=== PATIENT | female | born 1995 | race American Indian/Alaskan Native ===

== ENCOUNTER 2016-11-21 16:38 | Emergency (ER) | payer SELFPAY ==
--- NOTE | 2016-11-22 01:49 | Emergency Department Report ---
HPI - General Chief Complaint: Dizziness Time Seen by Provider: 11/22/16 01:36 - HPI HPI: Room 19 The patient is a 21-year-old female presenting with a chief complaint of dizziness. The patient states for the past 3 days she is lightheaded she stands. Patient states she feels weak constantly. Patient admits to substernal chest pain or shortness of breath the past 3 days. The patient states yesterday she developed one episode of nausea and vomiting. Patient denies diarrhea, bright red blood per rectum or melena. The patient is admitted to an intermittent left sided headache for the past 3 days. Patient states she has had normal po intake Location: [see above] Duration: 3 days Quality: Dizziness Severity: Moderate Modifying factors: [see above] Context: [see above] Mode of transportation: [not driving] ED Past Medical Hx - Past Medical History Previous Medical History?: No - Surgical History Past Surgical History?: No - Family History Family history: no significant - Social History Smoking Status: Never Smoker Substance Use Type: None (denies illicit drug use), Alcohol - Medications Home Medications: Home Medications Medication Instructions Recorded Confirmed Last Taken Type Pnv95/Ferrous Fumarate/FA 1 each PO QDAY #90 tablet 11/22/16 Unknown Rx [Prenavite Tablet] ED Review of Systems ROS: Stated complaint: LIGHT HEADED Other details as noted in HPI Comment: All other systems reviewed and negative Constitutional: denies: chills, fever Eyes: denies: eye pain, eye discharge, vision change ENT: denies: ear pain, throat pain Respiratory: shortness of breath Cardiovascular: chest pain Endocrine: no symptoms reported Gastrointestinal: nausea, vomiting. denies: abdominal pain, diarrhea, melena, hematochezia Genitourinary: denies: urgency, dysuria, discharge Musculoskeletal: denies: back pain, joint swelling, arthralgia Skin: denies: rash, lesions Neurological: headache, other (dizziness) Psychiatric: denies: anxiety, depression Hematological/Lymphatic: denies: easy bleeding, easy bruising Physical Exam - Physical Exam Vital Signs: Vital Signs 11/21/16 11/22/16 11/22/16 16:47 01:01 01:10 Temperature 98.4 F Pulse Rate 91 H 73 64 Respiratory 18 11 L 18 Rate Blood Pressure 140/63 O2 Sat by Pulse 100 100 100 Oximetry 11/22/16 01:32 Temperature Pulse Rate Respiratory Rate Blood Pressure O2 Sat by Pulse 99 Oximetry Physical Exam: GENERAL: The patient is well-developed well-nourished female sitting on stretcher not appearing to be in acute distress. [] HEENT: Normocephalic. Atraumatic. Extraocular motions are intact. Patient has moist mucous membranes. NECK: Supple. Trachea midline. There are no signs of meningitis CHEST/LUNGS: Clear to auscultation. There is no respiratory distress noted. HEART/CARDIOVASCULAR: Regular. There is no tachycardia. There is no gallop rub or murmur. ABDOMEN: Abdomen is soft, nontender. Patient has normal bowel sounds. There is no abdominal distention. SKIN: There is no rash. There is no edema. There is no diaphoresis. NEURO: The patient is awake, alert, and oriented. The patient is cooperative. The patient has no focal neurologic deficits. The patient has normal speech. Cranial nerves II through XII grossly intact, no drift MUSCULOSKELETAL: There is no evidence of acute injury. ED Course Vital Signs 11/21/16 11/22/16 11/22/16 16:47 01:01 01:10 Temperature 98.4 F Pulse Rate 91 H 73 64 Respiratory 18 11 L 18 Rate Blood Pressure 140/63 O2 Sat by Pulse 100 100 100 Oximetry 11/22/16 01:32 Temperature Pulse Rate Respiratory Rate Blood Pressure O2 Sat by Pulse 99 Oximetry ED Medical Decision Making - Lab Data Result diagrams: 11/22/16 01:37 11/22/16 01:37 Laboratory Tests 11/22/16 11/22/16 11/22/16 01:37 01:37 01:50 WBC 5.5 RBC 3.94 Hgb 8.2 L Hct 26.7 L MCV 68 L MCH 21 L MCHC 31 RDW 22.3 H Plt Count 322 [place] % (Auto) Not Reportable Eos % (Auto) Not Reportable [place] # Not Reportable Eos # Not Reportable Baso # Not Reportable Add Manual Diff Complete Total Counted 100 Seg Neutrophils % Manager Balance Seg Neuts % (Manual) 66.0 Band Neutrophils % 2.0 Lymphocytes % (Manual) 27.0 Reactive Lymphs % (Man) 0 Monocytes % (Manual) 4.0 Eosinophils % (Manual) 0 Basophils % (Manual) 0 Metamyelocytes % 1.0 Myelocytes % 0 Promyelocytes % 0 Blast Cells % 0 Nucleated RBC % Not Reportable Seg Neutrophils # Not Reportable Seg Neutrophils # Man 3.6 Band Neutrophils # 0.1 Lymphocytes # (Manual) 1.5 Abs React Lymphs (Man) 0.0 Monocytes # (Manual) 0.2 Eosinophils # (Manual) 0.0 Basophils # (Manual) 0.0 Metamyelocytes # 0.1 Myelocytes # 0.0 Promyelocytes # 0.0 Blast Cells # 0.0 WBC Morphology Not Reportable Hypersegmented Neuts Not Reportable Hyposegmented Neuts Not Reportable Hypogranular Neuts Not Reportable Smudge Cells Not Reportable Toxic Granulation Not Reportable Toxic Vacuolation Not Reportable Dohle Bodies Not Reportable Pelger-Huet Anomaly Not Reportable Erma Rods Not Reportable Platelet Estimate Appears normal Clumped Platelets Not Reportable Plt Clumps, EDTA Not Reportable Large Platelets Not Reportable Giant Platelets Not Reportable Platelet Satelliting Not Reportable Plt Morphology Comment Not Reportable RBC Morphology Not Reportable Dimorphic RBCs Not Reportable Polychromasia Not Reportable Hypochromasia 2+ Poikilocytosis Not Reportable Anisocytosis 1+ Microcytosis 1+ Macrocytosis Not Reportable Spherocytes Not Reportable Pappenheimer Bodies Not Reportable Sickle Cells Not Reportable Target Cells Not Reportable Tear Drop Cells Not Reportable Ovalocytes Few Helmet Cells Not Reportable Hollins-Counce Bodies Not Reportable [place] Rings Not Reportable Trell Cells Not Reportable Bite Cells Not Reportable Crenated Cell Not Reportable Elliptocytes Not Reportable Acanthocytes (Spur) Not Reportable Rouleaux Not Reportable Hemoglobin C Crystals Not Reportable Schistocytes Not Reportable Malaria parasites Not Reportable Sergio Bodies Not Reportable Hem Pathologist Commnt No D-Dimer 319.31 H Sodium 136 L Potassium 3.6 Chloride 100.7 Carbon Dioxide 20 L Anion Gap 19 BUN 9 Creatinine 0.5 L Estimated GFR > 60 BUN/Creatinine Ratio 18.00 Glucose 84 Calcium 9.7 Troponin T < 0.010 TSH Free T4 HCG, Qual HCG, Quant 11/22/16 11/22/16 11/22/16 01:50 01:50 04:35 WBC RBC Hgb Hct MCV MCH MCHC RDW Plt Count [place] % (Auto) Eos % (Auto) [place] # Eos # Baso # Add Manual Diff Total Counted Seg Neutrophils % Seg Neuts % (Manual) Band Neutrophils % Lymphocytes % (Manual) Reactive Lymphs % (Man) Monocytes % (Manual) Eosinophils % (Manual) Basophils % (Manual) Metamyelocytes % Myelocytes % Promyelocytes % Blast Cells % Nucleated RBC % Seg Neutrophils # Seg Neutrophils # Man Band Neutrophils # Lymphocytes # (Manual) Abs React Lymphs (Man) Monocytes # (Manual) Eosinophils # (Manual) Basophils # (Manual) Metamyelocytes # Myelocytes # Promyelocytes # Blast Cells # WBC Morphology Hypersegmented Neuts Hyposegmented Neuts Hypogranular Neuts Smudge Cells Toxic Granulation Toxic Vacuolation Dohle Bodies Pelger-Huet Anomaly Erma Rods Platelet Estimate Clumped Platelets Plt Clumps, EDTA Large Platelets Giant Platelets Platelet Satelliting Plt Morphology Comment RBC Morphology Dimorphic RBCs Polychromasia Hypochromasia Poikilocytosis Anisocytosis Microcytosis Macrocytosis Spherocytes Pappenheimer Bodies Sickle Cells Target Cells Tear Drop Cells Ovalocytes Helmet Cells Hollins-Counce Bodies [place] Rings Trell Cells Bite Cells Crenated Cell Elliptocytes Acanthocytes (Spur) Rouleaux Hemoglobin C Crystals Schistocytes Malaria parasites Sergio Bodies Hem Pathologist Commnt D-Dimer Sodium Potassium Chloride Carbon Dioxide Anion Gap BUN Creatinine Estimated GFR BUN/Creatinine Ratio Glucose Calcium Troponin T < 0.010 TSH 0.317 Free T4 1.26 HCG, Qual Positive HCG, Quant 11/22/16 Unknown WBC RBC Hgb Hct MCV MCH MCHC RDW Plt Count [place] % (Auto) Eos % (Auto) [place] # Eos # Baso # Add Manual Diff Total Counted Seg Neutrophils % Seg Neuts % (Manual) Band Neutrophils % Lymphocytes % (Manual) Reactive Lymphs % (Man) Monocytes % (Manual) Eosinophils % (Manual) Basophils % (Manual) Metamyelocytes % Myelocytes % Promyelocytes % Blast Cells % Nucleated RBC % Seg Neutrophils # Seg Neutrophils # Man Band Neutrophils # Lymphocytes # (Manual) Abs React Lymphs (Man) Monocytes # (Manual) Eosinophils # (Manual) Basophils # (Manual) Metamyelocytes # Myelocytes # Promyelocytes # Blast Cells # WBC Morphology Hypersegmented Neuts Hyposegmented Neuts Hypogranular Neuts Smudge Cells Toxic Granulation Toxic Vacuolation Dohle Bodies Pelger-Huet Anomaly Erma Rods Platelet Estimate Clumped Platelets Plt Clumps, EDTA Large Platelets Giant Platelets Platelet Satelliting Plt Morphology Comment RBC Morphology Dimorphic RBCs Polychromasia Hypochromasia Poikilocytosis Anisocytosis Microcytosis Macrocytosis Spherocytes Pappenheimer Bodies Sickle Cells Target Cells Tear Drop Cells Ovalocytes Helmet Cells Hollins-Counce Bodies [place] Rings [place] Cells Bite Cells Crenated Cell Elliptocytes Acanthocytes (Spur) Rouleaux Hemoglobin C Crystals Schistocytes Malaria parasites Sergio Bodies Hem Pathologist Commnt D-Dimer Sodium Potassium Chloride Carbon Dioxide Anion Gap BUN Creatinine Estimated GFR BUN/Creatinine Ratio Glucose Calcium Troponin T TSH Free T4 HCG, Qual HCG, Quant 04776 H - EKG Data -: EKG Interpreted by Me EKG shows normal: sinus rhythm Rate: normal - EKG Data When compared to previous EKG there are: previous EKG unavailable Interpretation: nonspecific ST-T wave brayan (T-wave inversion in lead V2) - Radiology Data Radiology results: report reviewed (pelvic ultrasound, VQ scan), image reviewed (chest x-ray, VQ scan, pelvic ultrasound) interpreted by me: Chest x-ray-no focal infiltrates, no pneumothorax Pelvic ultrasound (read by radiologist)- twin gestations intrauterine VQ scan (read by radiologist)- very low probability - Differential Diagnosis dehydration, orthostasis, PE, pneumonia, UTI, symptomatic anemia Critical care attestation.: If time is entered above; I have spent that time in minutes in the direct care of this critically ill patient, excluding procedure time. ED Disposition Clinical Impression: , Atypical chest pain Disposition: [id number] TO HOME OR SELFCARE Is pt being admited?: No Does the pt Need Aspirin: No Condition: Stable Instructions: Chest Pain (ED), (ED) Additional Instructions: Return to the emergency department immediately should you develop worsening symptoms, fever, inability to tolerate food or liquid or any other concerns. Prescriptions: Pnv95/Ferrous Fumarate/FA [Prenavite Tablet] 1 each PO QDAY #90 tablet Referrals: DEACON RIOS MD [Staff Physician] - [place] (Dr. Rios is an [employer]. Please follow up with her for further evaluation and to be established as a patient)
[2016-11-22 02:13] LABS: Hematocrit 26.7 % (30.3-42.9); Hemoglobin 8.2 gm/dl (10.1-14.3); Mean Corpuscular HGB Conc 31 % (30-34); Platelet Count 322 K/mm3 (140-440); Red Blood Count 3.94 M/mm3 (3.65-5.03); White Blood Count 5.5 K/mm3 (4.5-11.0)
[2016-11-22 02:22] LABS: Anion Gap 19 mmol/L; Blood Urea Nitrogen 9 mg/dL (7-17); Calcium 9.7 mg/dL (8.4-10.2); Carbon Dioxide 20 mmol/L (22-30); Chloride 100.7 mmol/L (98-107); Glucose 84 mg/dL (65-100); Potassium 3.6 mmol/L (3.6-5.0); Sodium 136 mmol/L (137-145)
[2016-11-22 02:36] LABS: Mean Corpuscular Hemoglobin 21 pg (28-32); Mean Corpuscular Volume 68 fl (79-97); Red Cell Distribution Width 22.3 % (13.2-15.2)
[2016-11-22 03:22] VITALS: BP 117/61
[2016-11-22 05:14] LABS: Basophils % (Manual) 0 % (0.0-1.8); Blastocytes % (Manual) 0 %; Eosinophils % (Manual) 0 % (0.0-4.3)
[2016-11-22 05:15] LABS: Anisocytosis 1+; Diff Status Complete; Hypochromasia 2+; Microcytosis 1+; Ovalocytes Few
--- NOTE | 2016-11-22 06:05 | Ultrasound Report ---
FINAL REPORT EXAM: US OB \T\lt; = 14 WEEKS FETUS, US OB \T\lt; = 14 WK FETUS ADD GEST HISTORY: , anemia, dizziness. TECHNIQUE: Directed transabdominal and transvaginal ultrasound examination of the pelvis was performed. No prior studies are available for comparison. FINDINGS: The patient reports her last menstrual period 10/09/2016, corresponding to gestational age of 6 weeks, 2 days. The uterus is anteverted, and measures 8.5 x 5.7 x 8.9 cm. There are twin intrauterine gestations, with visualization of two distinct gestational sacs, each containing a single yolk sac and pole. For the purposes of this exam, twin A is located on the right side of the uterus, and twin B is located on the left. Twin A: The crown-rump length measures 7.5 mm, corresponding to gestational age of 6 weeks, 5 days. There is cardiac activity with a heart rate of 112 beats per minute. Twin B: The crown-rump length measures 8.5 mm, corresponding to gestational age of 6 weeks, 6 days. There is cardiac activity with a heart rate of 115 beats per minute. The right ovary measures 2.7 x 2.1 x 3.5 cm, and the left ovary measures 2.1 x 1.4 x 3.1 cm. Both ovaries demonstrate normal appearing subcentimeter follicles. There is appropriate color doppler flow within both ovaries. No other adnexal mass is seen. There is no significant pelvic free fluid. IMPRESSION: Twin live intrauterine gestations, with gestational ages of 6 weeks, 5-6 days, as estimated by crown-rump length.
--- NOTE | 2016-11-22 06:51 | Nuclear Medicine Report ---
FINAL REPORT EXAM: NM PERFUSION ONLY LUNG SCAN HISTORY: chest pain, shortness of breath TECHNIQUE: Nuclear medicine perfusion lung scan performed. 5.0 mCi technetium 99 M MAA IV was administered. Static images were obtained. PRIORS: None. FINDINGS: Pulmonary perfusion appears minimally heterogeneous. No segmental or subsegmental perfusion defects are seen. No ventilation imaging performed. Assuming normal ventilation, findings are compatible with very low probability of pulmonary embolus. IMPRESSION: Very low probability of pulmonary embolus.
--- NOTE | 2016-11-23 16:10 | XRay Report ---
CHEST ONE VIEW INDICATION: Shield abdomen. COMPARISON: None similar at this institution. FINDINGS: Portable, single, frontal chest radiograph suggests top normal heart size. Normal mediastinal and hilar contours. Clear lungs. Unremarkable bones. Extrinsic EKG leads. CONCLUSION: No acute disease in the chest. Please note that this exam is now submitted to me for interpretation. Thank you for the opportunity to participate in this patient's care.
== END 2016-11-22 08:15 | disposition home or self-care (01) ==
LOC: ED 16:38
DX: O26.891 Other specified pregnancy related conditions, first trimester (principal); R07.89 Other chest pain; Z3A.01 Less than 8 weeks gestation of pregnancy
CPT/HCPCS: 36415; 71010; 76801; 76802; 78580; 80048; 84439; 84443; 84484; 84702; 84703; 85007; 85025; 85379; 93005; 93010; 99285; A9540

== ENCOUNTER → 2016-11-21 | Emergency (ER) | payer SELFPAY | LOC: MERGE 16:40 → ED 16:40 | DX: R42 Dizziness and giddiness (principal); Z53.21 Procedure and treatment not carried out due to patient leaving prior to being seen by health care provider ==

== ENCOUNTER 2017-06-11 18:48 | Emergency (ER) | payer OTHER ==
--- NOTE | 2017-06-11 19:53 | Emergency Department Report ---
Blank Doc - Documentation Documentation: Patient is a 21-year-old asthmatic female who is presenting with vaginal bleeding. Patient is 12 weeks states she had some clots this morning but is slowed slightly now. Patient has some crampy lower abdominal pain mostly in the right lower quadrant. Patient denies any fever nausea vomiting at this time. Patient will undergo ultrasound beta Quant and ABO Rh
[2017-06-11] MEDS ORDERED: NACL 0.9% 1000 ML 1,000 ML IV ONE (19:54)
[2017-06-11 20:19] LABS: Hemoglobin 9.4 gm/dl (10.1-14.3); Red Blood Count 3.87 M/mm3 (3.65-5.03)
[2017-06-11 20:20] LABS: Hematocrit 28.9 % (30.3-42.9); Mean Corpuscular HGB Conc 33 % (30-34); Mean Corpuscular Hemoglobin 24 pg (28-32); Mean Corpuscular Volume 75 fl (79-97); Red Cell Distribution Width 21.2 % (13.2-15.2)
[2017-06-11 20:21] LABS: Basophils % (Auto) 0.4 % (0.0-1.8); Eosinophils # (Auto) 0.1 K/mm3 (0.0-0.4); Eosinophils % (Auto) 1.5 % (0.0-4.3); Lymphocytes # (Auto) 0.9 K/mm3 (1.2-5.4); Lymphocytes % (Auto) 14.9 % (13.4-35.0); Monocytes # (Auto) 0.6 K/mm3 (0.0-0.8); Monocytes % (Auto) 10.6 % (0.0-7.3); Platelet Count 321 K/mm3 (140-440)
[2017-06-11] MEDS ORDERED: TYLENOL ONE (21:08)
[2017-06-11 21:27] LABS: HCG Qualitative,Urine Positive (Negative)
[2017-06-11 21:33] LABS: Bacteria,Urine 1+ /HPF (Negative); Bilirubin,Urine NEG (Negative); Blood,Urine MOD (Negative); Color,Urine Yellow (Yellow); Mucus,Urine 2+ /HPF; Nitrite,Urine NEG (Negative)
--- NOTE | 2017-06-12 00:21 | Ultrasound Report ---
FINAL REPORT PROCEDURE: US OB < = 14 WK FETUS ADD GEST TECHNIQUE: Real-time limited sonographic examination was performed for evaluation of size, position, heartbeat, fluid volume for each fetus with image documentation (1 or more fetuses). CPT 61705 HISTORY: vag bleed 12 weeks preg COMPARISON: No prior studies are available for comparison. FINDINGS: There is a diamniotic dichorionic twin identified within the uterus. The cervical length is 3.3 centimeters. The placenta is identified along the anterior aspect of the uterus. There is a small subchorionic bleed identified adjacent to the twin a gestational sac. This area measures approximately 16 millimeters. Twin a is in a transverse position. heart rate 143 beats per minute. Average uterine age 13 weeks 1 day with the following measurements: BPD 2 centimeters, HC 7.6 centimeters, AC 2.3 centimeters, FL 1.1 centimeters. There is a normal amount of amniotic fluid present. Twin B is in a transverse position. heart rate 156 beats per minute. The average uterine age is 13 weeks 1 day based on the following measurements: BPD 2 centimeters, HC 7.8 centimeters, AC 6.3 centimeter, FL 0.9 centimeters. There is a normal amount of amniotic fluid present. Estimated date confinement is 12/16/2017. Both ovaries are identified on this study. There are follicular cysts on each ovary. No fluid in the lower pelvis. IMPRESSION: Twin gestation with average uterine age twin A 13 weeks 1 day, average uterine age twin B 13 weeks 1 day. Estimated date confinement is 12/16/2017.
--- NOTE | 2017-06-12 01:22 | Emergency Department Report ---
ED Female HPI - General Chief complaint: Vaginal Bleeding Stated complaint: VAGINAL BLEEDING Time Seen by Provider: 06/11/17 19:27 Source: patient Mode of arrival: Ambulatory Limitations: No Limitations - History of Present Illness Initial comments: This is a 21 y.o. female presents with vaginal bleeding and abdominal pain for 1 day. She is 12 weeks . LMP 02/2017. She was passing heavy clots yesterday morning. Bleeding has slowed down. She used 3 pads yesterday. She is wondering if the medication prescribed for the flu had something to do with bleeding. She was diagnosed with the flu 2-3 weeks ago, prescribed tamiflu, promethatizine, and something else she doesn't remember the name of. Denies back pain, nausea/vomiting, and fever. She is not followed by [facility] because she was waiting on medicaid approval. She was approved yesterday and plan on scheduling an appointment Tuesday. Complaint: vaginal bleeding -: days(s) (1) Location: RLQ Radiation: non-radiating Severity: mild Severity scale (0 -10): 3 Quality: cramping Consistency: intermittent Improves with: none Worsens with: none Are you Now?: Yes Last Menstrual Period: 03/14/17 EDC: 12/19/17 Associated Symptoms: vaginal bleeding, abdominal pain. denies: nausea/vomiting , fever/chills, headaches, loss of appetite, dysuria, hematuria, rash, seizure, shortness of breath, syncope, weakness - Related Data Sexually active: Yes : 1 Para: 0 A: 0 Previous Rx's Medication Instructions Recorded Last Taken Type Pnv No.95/Ferrous Fum/Folic AC 1 each PO QDAY #90 tablet 11/22/16 Unknown Rx [Prenavite Tablet] Allergies Allergy/AdvReac Type Severity Reaction Status Date / Time banana Allergy Angioedema Verified 11/21/16 16:49 kiwi Allergy Angioedema Verified 11/21/16 16:49 strawberry Allergy Angioedema Verified 11/21/16 16:48 ED Review of Systems ROS: Stated complaint: VAGINAL BLEEDING Other details as noted in HPI Constitutional: denies: chills, fever Respiratory: denies: cough, shortness of breath, wheezing Cardiovascular: denies: chest pain, palpitations Gastrointestinal: abdominal pain (RLQ). denies: nausea, vomiting, diarrhea, constipation, hematemesis Musculoskeletal: denies: back pain, joint swelling, arthralgia Neurological: denies: headache, weakness, paresthesias ED Past Medical Hx - Past Medical History Previous Medical History?: No - Surgical History Past Surgical History?: No - Social History Smoking Status: Never Smoker Substance Use Type: None - Medications Home Medications: Home Medications Medication Instructions Recorded Confirmed Last Taken Type Pnv No.95/Ferrous Fum/Folic AC 1 each PO QDAY #90 tablet 11/22/16 Unknown Rx [Prenavite Tablet] ED Physical Exam - General Limitations: No Limitations - Respiratory Respiratory exam: Present: normal lung sounds bilaterally. Absent: respiratory distress - Cardiovascular Cardiovascular Exam: Present: regular rate, normal rhythm. Absent: systolic murmur, diastolic murmur, rubs, gallop - GI/Abdominal GI/Abdominal exam: Present: soft, normal bowel sounds - Back Exam Back exam: Present: normal inspection - Neurological Exam Neurological exam: Present: alert, oriented X3 - Skin Skin exam: Present: warm, dry, intact, normal color. Absent: rash ED Course Vital Signs 06/11/17 06/11/17 18:56 19:25 Temperature 98.8 F Pulse Rate 120 H Respiratory 16 18 Rate Blood Pressure 122/69 O2 Sat by Pulse 99 99 Oximetry ED Medical Decision Making - Lab Data Result diagrams: 06/11/17 20:13 - Radiology Data Radiology results: report reviewed US OB IMPRESSION: Twin gestation with average uterine age twin A 13 weeks 1 day, average uterine age twin B 13 weeks 1 day. Estimated date confinement is 12/16/2017. - Medical Decision Making This is a 21 y.o. female presents with vaginal bleeding and abdominal pain for 1 day. She is 12 weeks gestation. Bleeding has slowed. She was passing clots yesterday morning. Patient was examined by me. CBC and HCG qual obtained. OB US obtained and read by radiologist. Twin gestation with average uterine age twin A 13 weeks 1 day, average uterine age twin B 13 weeks 1 day. Estimated date confinement is 12/16/2017. Discussed results with patient. F/U with [facility]OSPAT[facility]AGERY INTELLIGENCE ANALYST. Critical care attestation.: If time is entered above; I have spent that time in minutes in the direct care of this critically ill patient, excluding procedure time. ED Disposition Clinical Impression: Vaginal bleeding in Subchorionic hemorrhage in first trimester Qualifiers: Fetus number: fetus 1 of multiple gestation Qualified Code(s): O41.8X11 - Other specified disorders of amniotic fluid and membranes, first trimester, fetus 1; O46.8X1 - Other antepartum hemorrhage, first trimester; O46.8X1 - Other antepartum hemorrhage, first trimester Disposition: TO HOME OR SELFCARE Is pt being admited?: No Does the pt Need Aspirin: No Condition: Stable Instructions: Abdominal Pain in (ED) Additional Instructions: Avoid standing for long periods of time. Avoid intercourse. Avoid exercise. Follow up with GEOSPATIAL IMAGERY INTELLIGENCE ANALYST in 24-48 hours. Referrals: DWIGHT ELIAS MD [Staff Physician] - 3-5 Days Time of Disposition: 01:42 Print Language: ITALIAN
[2017-06-12 01:58] VITALS: BP 126/73
--- NOTE | 2017-06-12 07:31 | Ultrasound Report ---
FINAL REPORT EXAM: US OB < = 14 WEEKS FETUS HISTORY: VAG BLEED 12 WEEKS PREG TECHNIQUE: Transabdominal imaging was obtained of the pelvis for evaluation of the . FINDINGS: There is a diamniotic dichorionic twin within the uterus. The cervix is closed and measures 3.3 centimeters in length. The placenta is anterior in position and is homogeneous in echotexture. There is a very small subchorionic hemorrhage adjacent to the twin a gestational sac. Twin a is in transverse position with heart rate of 143 BPM. There is a normal amount of amniotic fluid. A complete survey of organs was not obtained. The estimated sonographic age is 13 weeks 1 day based on criteria. Twin B is also in transverse position with an estimated sonographic age of 13 weeks 1 day. A complete survey of organs was not obtained. The abdomen fluid volume is normal. The heart rate for twin B is 156 BPM. Both maternal ovaries are enlarged revealing benign-appearing follicles bilaterally. The right ovary measures 5.3 cm x 3.2 cm x 5.6 cm. The left ovary measures 5.2 cm x 3.1 cm x 5.6 cm. Free fluid is not seen. IMPRESSION: Diamniotic dichorionic twin , with an estimated gestational age of 13 weeks 1 day for both fetuses.
== END 2017-06-12 02:05 | disposition home or self-care (01) ==
LOC: ED 18:48
DX: O46.8X1 Other antepartum hemorrhage, first trimester (principal); O41.8X11 Other specified disorders of amniotic fluid and membranes, first trimester, fetus 1; Z3A.12 12 weeks gestation of pregnancy; Z91.018 Allergy to other foods
CPT/HCPCS: 36415; 76801; 76802; 81001; 81025; 85025; 96360; 96361; 99284; J7030

== ENCOUNTER 2017-09-03 18:44 | Observation (INO) | payer MEDICAID ==
[2017-09-03] MEDS ORDERED: LACTATED RINGERS 500 ML IV ONE (20:00)
[2017-09-03 20:36] LABS: Bacteria,Urine 2+ /HPF (Negative); Bilirubin,Urine NEG (Negative); Blood,Urine NEG (Negative); Calcium Oxalate Crystals,Urine FEW; Color,Urine Yellow (Yellow); Mucus,Urine 2+ /HPF; Urobilinogen,Urine < 2.0 mg/dL (<2.0)
[2017-09-03] MEDS ORDERED: MACROBID PO ONE (21:21)
[2017-09-03] MEDS ORDERED: TYLENOL PO ONE (21:22)
--- NOTE | 2017-09-03 23:58 | Ultrasound Report ---
FINAL REPORT PROCEDURE: US OB LIMITED TECHNIQUE: Real-time limited sonographic examination was performed for evaluation of cervical length, presentation, presentation for each fetus with image documentation (1 or more fetuses). CPT 86450 HISTORY: Twinges station, contractions, COMPARISON: No prior studies are available for comparison. FINDINGS: This is a twin gestation. Both twins are in vertex presentations. Average uterine age by prior studies is approximately 24 weeks. heart rate twin a 153 beats per minute. heart rate Cespedes be 143 beats per minute. No other measurements on the fetus are attained. There is opening of the internal os with funneling of the cervix. The cervical length on this study is 6 millimeters. IMPRESSION: Twinges station with both twins in vertex presentations. Incompetent cervix with opening of the internal oz and funneling in the cervix. The cervical length on this study measures 6 millimeters.
--- NOTE | 2017-09-04 00:01 | Ultrasound Report ---
FINAL REPORT PROCEDURE: US OB LIMITED, transvaginal imaging TECHNIQUE: Real-time limited sonographic examination was performed for evaluation of cervical length, presentation, presentation for each fetus with image documentation (1 or more fetuses). CPT 00991 HISTORY: Twinges station, contractions, COMPARISON: No prior studies are available for comparison. FINDINGS: This is a twin gestation. Both twins are in vertex presentations. Average uterine age by prior studies is approximately 24 weeks. heart rate twin a 153 beats per minute. heart rate twin B 143 beats per minute. No other measurements on the fetus are attained. There is opening of the internal os with funneling of the cervix. The cervical length on this study is 6 millimeters. IMPRESSION: Twinges station with both twins in vertex presentations. Incompetent cervix with opening of the internal oz and funneling in the cervix. The cervical length on this study measures 6 millimeters.
[2017-09-04] MEDS ORDERED: MAGNESIUM SULFATE 4GM/100ML 4 GM/100 ML BAG IV ONE (00:11)
[2017-09-04 00:49] LABS: Hematocrit 28.5 % (30.3-42.9); Hemoglobin 8.9 gm/dl (10.1-14.3); Mean Corpuscular HGB Conc 31 % (30-34); Mean Corpuscular Hemoglobin 26 pg (28-32); Mean Corpuscular Volume 83 fl (79-97); Platelet Count 239 K/mm3 (140-440); Red Blood Count 3.44 M/mm3 (3.65-5.03)
[2017-09-04] MEDS ORDERED: MAGNESIUM SULFATE 40GM/1000ML 40 GM/1,000 ML BAG IV SCH (01:00)
[2017-09-04] MEDS ORDERED: CELESTONE SOLUSPAN IM SCH (01:00)
[2017-09-04] MEDS ORDERED: LACTATED RINGERS 1,000 ML IV SCH (01:00)
[2017-09-04] MEDS ORDERED: STADOL IV PRN (02:05)
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
[2017-09-04 03:18] LABS: Amphetamine Screen,Urine PRESUMPTIVE NEGATIVE; Benzodiazepines Screen,Urine PRESUMPTIVE NEGATIVE; Cannabinoid Screen,Urine PRESUMPTIVE NEGATIVE; Cocaine Screen,Urine PRESUMPTIVE NEGATIVE; Methadone Screen,Urine PRESUMPTIVE NEGATIVE; Opiate Screen,Urine PRESUMPTIVE NEGATIVE
[2017-09-04 03:21] VITALS: BP 129/65
== END 2017-09-04 03:40 | disposition other institution (70) ==
LOC: TRG 18:44 → LD 09-04 00:24
PROVIDERS: ADMIT Obstetrics & Gynecology; ATTEND Obstetrics & Gynecology
DX: O26.872 Cervical shortening, second trimester (principal); O30.092 Twin pregnancy, unable to determine number of placenta and number of amniotic sacs, second trimester; Z3A.25 25 weeks gestation of pregnancy
CPT/HCPCS: 36415; 76815; 76817; 80307; 81001; 82731; 85027; 86592; 86850; 86900; 86901; 96361; 96365; 96366; 96367; 96372; G0378; J0702; J3475; J7120

== ENCOUNTER 2017-09-10 01:34 | Inpatient (IN) | payer MEDICAID ==
[~2017-09-10 01:34] MED LIST: MAGNESIUM SULFATE 4GM/100ML 4 GM/100 ML BAG IV ONE
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
[2017-09-10] MEDS ORDERED: EMLA TP PRN (02:39)
[2017-09-10] MEDS ORDERED: PEPCID IV ONE (02:39)
[2017-09-10] MEDS ORDERED: BICITRA PO ONE (02:39)
[2017-09-10] MEDS ORDERED: REGLAN IV ONE (02:39)
[2017-09-10] MEDS ORDERED: ASTRAMORPH PF 10MG/10ML ONE (02:51)
[2017-09-10 02:54] LABS: Hematocrit 28.7 % (30.3-42.9); Hemoglobin 9.3 gm/dl (10.1-14.3); Mean Corpuscular HGB Conc 32 % (30-34); Mean Corpuscular Hemoglobin 27 pg (28-32); Mean Corpuscular Volume 83 fl (79-97); Platelet Count 217 K/mm3 (140-440); Red Blood Count 3.46 M/mm3 (3.65-5.03)
[2017-09-10 02:58] LABS: Red Cell Distribution Width 27.5 % (13.2-15.2)
[2017-09-10] MEDS ORDERED: PITOCin/NS 20 UNIT/1000ML DRIP 20 UNITS/1,000 ML BAG IV SCH ×2 (03:00→05:00)
[2017-09-10] MEDS ORDERED: LACTATED RINGERS 1,000 ML IV SCH (03:00)
[2017-09-10] MEDS ORDERED: MAGNESIUM SULFATE 40GM/1000ML 40 GM/1,000 ML BAG IV SCH (03:00)
[2017-09-10] MEDS ORDERED: ANCEF/STERILE WATER 2 GM/20 ML 2 GM/20 ML SYRINGE IV NR (03:00)
[2017-09-10] MEDS ORDERED: WATER FOR IRRIG STERILE IR ONE (03:10)
[2017-09-10] MEDS ORDERED: NACL 0.9% IR ONE (03:10)
[2017-09-10] MEDS ORDERED: CUROSURF ONE ×2 (03:13→04:29)
[2017-09-10] MEDS ORDERED: DIPRIVAN 10 MG/ML IV ONE (03:26)
[2017-09-10] MEDS ORDERED: NEO SYNEPHRINE/NS Syringe(OR USE) IV ONE (03:51)
[2017-09-10] MEDS ORDERED: QUELICIN ONE (03:51)
[2017-09-10] MEDS ORDERED: SUBLIMAZE ONE (03:53)
[2017-09-10 03:58] LABS: Basophils % (Manual) 0 % (0.0-1.8); Myelocytes # (Manual) 0.1 K/mm3; Total Cells Counted 100
[2017-09-10 03:59] LABS: Large Platelets Few; Tear Drop Cells Few
[2017-09-10 04:00] LABS: Platelet Estimate Consistent w Auto
--- NOTE | 2017-09-10 04:21 | Operative Report ---
Operative Report Operative Report: DATE: 09/10/2017 PREOPERATIVE DIAGNOSIS: 22-year-old at 26+1 wks, Di Di twin gestation, active labor, malpresentation POSTOP DIAGNOSIS: As above NAME OF PROCEDURE: Primary low transverse section SURGEON: SANDRA VAZQUEZ MD FILLETER: Lakeshia ANESTHESIA: Gen. EBL: 1000 mL PATHOLOGY SPECIMEN: None URINE OUTPUT: 300 mL FINDINGS: Baby A is a female infant in cephalic presentation, time of 3: 30 AM, infant weighed 1 lb. 10 oz. or 745 grams, unknown at this time intubated; baby B in breech presentation time of 3:31 AM, weight 810 g or 1 lb. 13 oz., unknown at this time baby intubated; normal uterus tubes and ovaries bilaterally DESCRIPTION OF PROCEDURE: After informed consent, patient was taken to the operating room where she was prepped and draped in a sterile fashion. Pfannestial incision was performed 2 cm above the pubic symphysis. This was then carried down to the underlying rectus fascia which was scored in the midline. The fascial incision was extended laterally with the use of Schilling scissors, anterior leaf was then grasped with Adriana's elevated dissected sharply and bluntly off the underlying rectus. In a similar fashion the inferior leaf was grasped elevated dissected sharply and bluntly off the underlying rectus. The rectus was in the midline and the peritoneal cavity was entered without difficulty. After good visualization of the bladder the peritoneal layer was extended up and down; bladder blade was placed in the patient's pelvic cavity, bladder flap was created without difficulty. A hysterotomy incision was then performed with clear amniotic fluid noted. Infant A in cephalic presentation was delivered without difficulty in the usual manner ; cord was clamped cut and was handed over to waiting NICU staff. Baby B in breech presentation was verted and delivered in usual manner. Cord was clamped, cut and was handed over to waiting NICU staff. The placenta was then delivered intact, the uterus was then exteriorized cleared of all clots and debris. Her hysterotomy incision was then closed in a running locked fashion with 0 Vicryl on a CTX; using the same suture were able to imbricate the initial layer. The uterus was then returned to the patient's pelvic cavity ; the peritoneal edges were grasped with hemostats and Kalie's; irrigation was used to clear the gutters of all clots and debris. Tisseel hemostatic agent was applied copiously over the hysterotomy incision. The peritoneal layer was closed in a running fashion with 3-0 Vicryl; the rectus was reapproximated with a single [id number] stitch. The fascia was then closed in a running fashion with 0 Vicryl; the subcutaneous layer was reapproximated with a single [id number] stitch. The skin was then closed in a subcuticular manner with 4-0 Monocryl. She tolerated the procedure well lap and instrument counts were correct 2, she did receive 2 grams of Ancef prior to the procedure. She is transferred to PACU in stable condition.
[2017-09-10] MEDS ORDERED: TUCKS PAD TP PRN (04:22)
[2017-09-10] MEDS ORDERED: MILK OF MAGNESIA PO PRN (04:22)
[2017-09-10] MEDS ORDERED: NARCAN 0.4 MG/1 ML IV PRN ×2 (04:22→04:51)
[2017-09-10] MEDS ORDERED: PHENERGAN PR PRN ×2 (04:22→04:51)
[2017-09-10] MEDS ORDERED: SENOKOT PO PRN (04:22)
[2017-09-10] MEDS ORDERED: TYLENOL PO PRN (04:22)
[2017-09-10] MEDS ORDERED: LANSINOH TP PRN (04:22)
[2017-09-10] MEDS ORDERED: ZOFRAN IV PRN ×2 (04:22→04:51)
[2017-09-10] MEDS ORDERED: TORADOL IV PRN (04:22)
[2017-09-10] MEDS ORDERED: MYLICON PO PRN (04:22)
[2017-09-10] MEDS ORDERED: WATER FOR INJ ONE (04:29)
[2017-09-10] MEDS ORDERED: [UNRECOGNIZED DRUG - OTHER] ONE (04:29)
[2017-09-10] MEDS ORDERED: TORADOL ONE (04:47)
[2017-09-10] MEDS ORDERED: PHENERGAN PO PRN (04:51)
[2017-09-10] MEDS ORDERED: DILAUDID IV PRN ×2 (04:51)
[2017-09-10] MEDS: TORADOL IV SCH ×3 (04:55→20:40)
--- NOTE | 2017-09-10 04:55 | Anesthesia Consultation ---
Anesthesia Consult and Med Hx Date of service: 09/10/17 - Airway Anesthetic Teeth Evaluation: Good ROM Head & Neck: Adequate Mental/Hyoid Distance: Adequate Mallampati Class: Class II Intubation Access Assessment: Possibly Difficult - Pulmonary Exam CTA: Yes - Cardiac Exam Cardiac Exam: RRR - Pre-Operative Health Status ASA Pre-Surgery Classification: ASA2, Emergency Proposed Anesthetic Plan: Epidural, Spinal - Pulmonary Hx Smoking: No Hx Asthma: No COPD: No Hx Pneumonia: No - Cardiovascular System Hx Hypertension: No - Central Nervous System Hx Seizures: No Hx Psychiatric Problems: No - Endocrine Hx Renal Disease: No Hx End Stage Renal Disease: No Hx Hypothyroidism: No Hx Hyperthyroidism: No - Hematic Hx Anemia: No Hx Sickle Cell Disease: No - Other Systems Hx Alcohol Use: No
--- NOTE | 2017-09-10 04:55 | Anesthesia Day of Surgery ---
Anesthesia Day of Surgery - Day of Surgery Patient Examined: Yes Patient H&P Reviewed: Yes Patient is NPO: No (OB declared emergency Csection)
--- NOTE | 2017-09-10 04:56 | Post Anesthesia Evaluation ---
- Post Anesthesia Evaluation Patient Participated: Yes Airway Patent: Yes Stable Respiratory Function: Yes Nausea/Vomiting: No Temp > 96.8F: Yes Pain Manageable: Yes Adequeate Hydration: Yes Anesthesia Complications: No Block Receding Appropriately: Yes Patient on Ventilator: No
[2017-09-10] MEDS ORDERED: SODIUM CHLORIDE FLUSH SYRINGE 10 ML IV NR ×2 (05:00)
[2017-09-10] MEDS ORDERED: D5LR 1,000 ML IV SCH (05:00)
[2017-09-10] MEDS ORDERED: LACTATED RINGERS 1,000 ML ONE (05:38)
[2017-09-10] MEDS ORDERED: MAGNESIUM SULFATE 4GM/100ML 4 GM/100 ML BAG IV ONE (06:05)
[2017-09-10] MEDS ORDERED: BENADRYL ONE (08:32)
[2017-09-10] MEDS ORDERED: D5LR 1,000 ML IV ONE (08:32)
[2017-09-10] MEDS ORDERED: BENADRYL IV PRN (08:45)
[2017-09-10] MEDS ORDERED: PRENATAL VITAMIN PO SCH (10:00)
[2017-09-10 15:09] LABS: Bilirubin,Urine NEG (Negative); Blood,Urine SM (Negative); Color,Urine Yellow (Yellow); Mucus,Urine FEW /HPF; Protein,Urine <15 mg/dL mg/dL (Negative); Urobilinogen,Urine < 2.0 mg/dL (<2.0)
[2017-09-10 15:10] LABS: Amphetamine Screen,Urine PRESUMPTIVE NEGATIVE; Benzodiazepines Screen,Urine PRESUMPTIVE NEGATIVE; Cannabinoid Screen,Urine PRESUMPTIVE NEGATIVE; Cocaine Screen,Urine PRESUMPTIVE NEGATIVE; Methadone Screen,Urine PRESUMPTIVE NEGATIVE
[2017-09-10 15:26] LABS: Opiate Screen,Urine PRESUMPTIVE POSITIVE
[2017-09-10] MEDS: PERCOCET 5/325 PO PRN ×2 (16:12→23:38)
[2017-09-10 22:19] LABS: Hematocrit 23.5 % (30.3-42.9); Hemoglobin 7.3 gm/dl (10.1-14.3)
[2017-09-11] MEDS: TORADOL IV SCH (04:34)
[2017-09-11] MEDS: PERCOCET 5/325 PO PRN ×3 (06:48→18:30)
--- NOTE | 2017-09-11 09:41 | Progress Note ---
Assessment and Plan A: POD #1 - stable P; Babies at [facility] and stable per mom's report Discharge home in am. Subjective - Subjective Date of service: 09/11/17 Principal diagnosis: Twin operative delivery at 26wks gestation Patient reports: appetite normal : in NICU (At [facility]) Objective - Vital Signs Latest vital signs: Vital Signs Temp Pulse Resp BP 09/11/17 09:00 98.2 F 87 18 119/52 09/11/17 00:43 98.0 F 89 18 109/47 09/10/17 16:40 98 F 100 H 18 123/73 09/10/17 12:52 99.4 F 106 H 16 120/76 Intake and Output 09/10/17 09/11/17 09/11/17 22:59 06:59 14:59 Intake Total 600 240 Output Total 3300 800 Balance -2700 -800 240 Intake: Oral 600 240 Output: Urine 3300 800 Indwelling Catheter 3000 Void 300 800 Other: Total, Intake Amount 240 240 Total, Output Amount 300 800 # Voids Void 0 1 1 - Exam Breasts: Present: deferred Cardiovascular: Present: Regular rate Lungs: Present: Clear to auscultation Abdomen: Present: soft Vulva: both: normal Uterus: Present: fundal height below umbilicus Extremities: Present: normal Deep Tendon Reflex Grade: Normal +2 Incision: Present: dressed - Labs Labs: Abnormal lab results 09/10/17 09/10/17 Range/Units 14:25 22:07 Hgb 7.3 L (10.1-14.3) gm/dl Hct 23.5 L (30.3-42.9) % Urine WBC (Auto) 9.0 H (0.0-6.0) /HPF
[2017-09-11] MEDS: FEOSOL PO SCH (11:06)
[2017-09-11] MEDS: MOTRIN PO PRN ×2 (11:07→18:31)
[2017-09-12] MEDS: PERCOCET 5/325 PO PRN ×2 (00:02→10:03)
[2017-09-12] MEDS: MOTRIN PO PRN (05:22)
--- NOTE | 2017-09-12 09:27 | Progress Note ---
Assessment and Plan - Patient Problems (1) S/P primary low transverse Current Visit: Yes Status: Acute Plan to address problem: POD 2 - stable Discharge to home today Follow up at [facility] in 2 weeks for incision check (2) Anemia of the puerperium Current Visit: Yes Status: Acute Plan to address problem: Asymptomatic Known history prior to and during Continue iron therapy Subjective - Subjective Date of service: 09/12/17 Principal diagnosis: S/P twin operative delivery at 26wks gestation Patient reports: appetite normal, voiding normally, pain well controlled, flatus , bowel movement, ambulating normally [place]: in NICU (at [facility]) Objective - Vital Signs Latest vital signs: Vital Signs Temp Pulse Resp BP Pulse Ox 09/11/17 23:17 98.6 F 87 20 119/67 09/11/17 15:39 97.6 F 79 18 126/57 97 Intake and Output 09/11/17 09/12/17 09/12/17 23:59 07:59 15:59 Intake Total 360 600 Balance 360 600 Intake: Oral 240 Intake, Free Water 120 600 Other: Total, Intake Amount 240 # Voids Void 1 1 - Exam Cardiovascular: Present: Regular rate, Normal S1, Normal S2, No murmurs Lungs: Present: Clear to auscultation, Normal air movement Abdomen: Present: normal appearance, soft, normal bowel sounds Vulva: both: normal Uterus: Present: normal, firm, fundal height below umbilicus Extremities: Present: normal Deep Tendon Reflex Grade: Normal +2 Incision: Present: normal, dry, intact
--- NOTE | 2017-09-12 09:31 | Discharge Summary ---
Providers - Providers Date of Admission: 09/10/17 02:29 Date of discharge: 09/12/17 Attending physician: DWIGHT ELIAS MD Primary care physician: DWIGHT ELIAS MD Hospitalization Reason for admission: IUP - , labor Delivery: Procedure: primary low transverse Episiotomy: none Laceration: none Incision: normal, dry, intact Other procedures: none complications: none Discharge diagnosis: IUP at term delivered baby: twins Hospital course: Complicated by anemia but patient is asymptomtic and on iron therapy Condition at discharge: Stable Disposition: DC-01 TO HOME OR SELFCARE - Discharge Diagnoses (1) S/P primary low transverse Status: Acute (2) Anemia of the puerperium Status: Acute Comment: Asymptomatic Continue iron therapy Plan - Discharge Medications Prescriptions: Ibuprofen [Motrin 600 MG tab] 600 mg PO Q8H PRN #30 tablet PRN Reason: Pain Multivitamin with Iron [Multivitamins with Iron] 1 each PO DAILY #30 tablet oxyCODONE /ACETAMINOPHEN [Percocet 5/325] 1 tab PO Q6HR PRN #30 tablet PRN Reason: Pain - Provider Discharge Summary Activity: routine, no sex for 6 weeks, no heavy lifting 4 weeks, no strenuous exercise Diet: routine Instructions: routine Additional instructions: [] Smoking cessation referral if applicable(refer to patient education folder for contact #) [] Refer to [facility] Booklet Call your doctor immediately for: * Fever > 100.5 * Heavy vaginal bleeding ( >1 pad per hour) * Severe persistent headache * Shortness of breath * Reddened, hot, painful area to leg or breast * Drainage or odor from incision. * Keep incision clean and dry at all times and follow doctor's instructions regarding bathing/showering - Follow up plan Follow up: DWIGHT ELIAS MD [Primary Care Provider] - 14 Days (Call [facility] PROGRAM DIRECTOR/MUSIC DIRECTOR to schedule an appointment in 2 weeks for incision check)
--- NOTE | 2017-09-12 09:49 | Ultrasound Report ---
FINAL REPORT PROCEDURE: OB US LIMITED FETUS(S) TECHNIQUE: Real-time limited sonographic examination was performed for evaluation of size, position, heartbeat, fluid volume for each fetus with image documentation (1 or more fetuses). CPT 15635 HISTORY: in lab COMPARISON: No prior studies are available for comparison. FINDINGS: There is a twin intrauterine gestation. Placenta is anterior and grade 0. FETUS A: Presentation, cephalic. Heart rate: 166 beats per minute. FETUS B: Presentation: Breech. Heart rate: 164 beats per minute. The internal os of the cervix is dilated at 5.8 centimeters. There fluid in the endocervical canal. IMPRESSION: There is a twin intrauterine gestation. Placenta is anterior and grade 0. FETUS A: Presentation, cephalic. Heart rate: 166 beats per minute. FETUS B: Presentation: Breech. Heart rate: 164 beats per minute. The internal os of the cervix is dilated at 5.8 centimeters. There fluid in the endocervical canal.
[2017-09-12 09:57] VITALS: BP 127/71
[2017-09-12] MEDS: FEOSOL PO SCH (10:03)
== END 2017-09-12 11:55 | disposition home or self-care (01) | DRG 765 ==
LOC: TRG 01:34 → APU 02:29 → OB 06:35
PROVIDERS: ADMIT Obstetrics & Gynecology; ATTEND Obstetrics & Gynecology
PROC: 10D00Z1 Extraction of Products of Conception, Low, Open Approach (ICD-10-PCS; principal; 2017-09-10)
DX: O60.12X0 Preterm labor second trimester with preterm delivery second trimester, not applicable or unspecified (principal); O26.873 Cervical shortening, third trimester; Z3A.26 26 weeks gestation of pregnancy; Z37.2 Twins, both liveborn; Z91.018 Allergy to other foods; O90.81 Anemia of the puerperium; D64.9 Anemia, unspecified; O32.1XX2 Maternal care for breech presentation, fetus 2; O30.042 Twin pregnancy, dichorionic/diamniotic, second trimester
CPT/HCPCS: 36415; 76815; 80307; 81001; 85007; 85014; 85018; 85025; 85660; 86592; 86706; 86762; 86850; 86900; 86901; 87806; 88305; 99211; A6250; C9250; G0463; J0330; J1200; J1885; J2274; J2370; J2405; J2704; J3010; J3475; J7120; J7121

== ENCOUNTER 2017-09-13 18:53 | Emergency (ER) | payer MEDICAID ==
[2017-09-13 21:00] LABS: Hematocrit 25.4 % (30.3-42.9); Hemoglobin 8.2 gm/dl (10.1-14.3); Mean Corpuscular HGB Conc 32 % (30-34); Mean Corpuscular Hemoglobin 27 pg (28-32); Mean Corpuscular Volume 83 fl (79-97); Platelet Count 433 K/mm3 (140-440); Red Blood Count 3.08 M/mm3 (3.65-5.03); Red Cell Distribution Width 25.5 % (13.2-15.2)
[2017-09-13 21:04] LABS: INR 0.93 (0.87-1.13)
[2017-09-13 21:10] LABS: Alanine Aminotransferase 19 units/L (7-56); Albumin 3.7 g/dL (3.9-5); BUN/Creatinine Ratio 20; Blood Urea Nitrogen 12 mg/dL (7-17); Calcium 10.2 mg/dL (8.4-10.2); Hemolysis Index 0
[2017-09-13 21:35] LABS: Basophils % (Manual) 0 % (0.0-1.8); Myelocytes # (Manual) 0.1 K/mm3; Total Cells Counted 100
[2017-09-13 21:36] LABS: Anisocytosis 2+; Platelet Estimate Consistent w Auto
[2017-09-14 01:06] LABS: Bilirubin,Urine NEG (Negative); Blood,Urine MOD (Negative); Color,Urine Straw (Yellow); Protein,Urine <15 mg/dL mg/dL (Negative); Urobilinogen,Urine < 2.0 mg/dL (<2.0)
[2017-09-14 11:12] VITALS: BP 125/64
== END 2017-09-14 11:50 | disposition left against medical advice (07) ==
LOC: ED 18:53
DX: R51 Headache (principal); R42 Dizziness and giddiness; Z91.018 Allergy to other foods; Z53.21 Procedure and treatment not carried out due to patient leaving prior to being seen by health care provider
CPT/HCPCS: 36415; 80053; 81001; 85007; 85025; 85610; 85730

== ENCOUNTER 2020-11-11 19:15 | Emergency (ER) | payer MEDICAID ==
[2020-11-11 19:27] VITALS: BP 112/52
[2020-11-11 21:27] LABS: Basophils % (Auto) 0.6 % (0.0-1.8); Eosinophils # (Auto) 0.1 K/mm3 (0.0-0.4); Eosinophils % (Auto) 2.4 % (0.0-4.3); Hematocrit 32.9 % (30.3-42.9); Hemoglobin 10.9 gm/dl (10.1-14.3); Lymphocytes % (Auto) 16.9 % (13.4-35.0); Mean Corpuscular HGB Conc 33 % (30-34); Mean Corpuscular Volume 86 fl (79-97); Monocytes # (Auto) 0.5 K/mm3 (0.0-0.8); Monocytes % (Auto) 7.9 % (0.0-7.3); Platelet Count 257 K/mm3 (140-440); Red Blood Count 3.84 M/mm3 (3.65-5.03); Red Cell Distribution Width 14.9 % (13.2-15.2)
--- NOTE | 2020-11-11 21:44 | Ultrasound Report ---
ULTRASOUND OBSTETRIC INDICATION / CLINICAL INFORMATION: preg, bleeding, cramping. Clinical Gestational Age (GA) in weeks, days: 18 weeks, 1 day TECHNIQUE: Transabdominal. COMPARISON: None available. FINDINGS: Single intrauterine . Biparietal Diameter = 3.97 cm = 18 weeks, 0 days Head Circumference = 14.73 cm = 17 weeks, 6 days Abdominal Circumference = 12.17 cm = 17 weeks, 6 days Femur Length = 2.76 cm = 18 weeks, 3 days Average Ultrasound Age (AUA) = 18 weeks, 0 days Heart Rate: 142 beats per minute. Estimated Weight in grams (if calculated): 224 Estimated Weight Growth Percentile (if calculated): 42% Position: cephalic. Cervix: closed. Length in cm (if measured): 3.36 Placenta: posterior and free of the os. Amniotic Fluid Volume: normal Amniotic Fluid Index (ART) in cm (if calculated): 5.1. Maternal Adnexa: No significant abnormality. IMPRESSION: 1. Single, living intrauterine with estimated sonographic age of 18 weeks, 0 days. 2. No significant sonographic abnormality. Signer Name: Jean Babin MD Signed: 11/11/2020 9:39 PM Workstation Name: [id number]
--- NOTE | 2020-11-11 23:06 | Emergency Department Report ---
ED Female HPI - General Chief complaint: Vaginal Bleeding Stated complaint: 5 MO SPOTTING CRAMPING Time Seen by Provider: 11/11/20 22:36 Source: patient Mode of arrival: Ambulatory Limitations: No Limitations - History of Present Illness Initial comments: This is a 25-year-old female presents to the ED at approximately 18 weeks gestation followed by [facility] presents to ED today complaining of pelvic cramping with mild abdominal m that she noticed yesterday. Patient states abdominal pain is mild and intermittent rated about 5 out of 10 intensity. Patient states that she saw scans pinkish blood yesterday when she was in the bathroom and when she wiped. Patient denies fever, chills, dysuria, dizziness, lightheadedness, vaginal discharge. She denies any injury or trauma to the abdomen. MD Complaint: vaginal bleeding, pelvic pain Location: suprapubic Radiation: non-radiating, suprapubic Severity: mild Severity scale (0 -10): 4 Associated Symptoms: denies other symptoms - Related Data Previous Rx's Medication Instructions Recorded Last Taken Type Pnv No.95/Ferrous Fum/Folic AC 1 each PO QDAY #90 tablet 11/22/16 09/03/17 Rx [Prenavite Tablet] Ibuprofen [Motrin 600 MG tab] 600 mg PO Q8H PRN #30 tablet 09/10/17 Unknown Rx Multivitamin with Iron 1 each PO DAILY #30 tablet 09/10/17 Unknown Rx [Multivitamins with Iron] oxyCODONE /ACETAMINOPHEN [Percocet 1 tab PO Q6HR PRN #30 tablet 09/10/17 Unknown Rx 5/325] Nitrofurantoin Nance/M-Cryst 100 mg PO Q12HR #10 capsule 11/12/20 Unknown Rx [Macrobid CAP] Allergies Allergy/AdvReac Type Severity Reaction Status Date / Time banana Allergy Itching Verified 09/04/17 02:41 blueberry Allergy Itching Verified 11/11/20 19:26 ED Review of Systems ROS: Stated complaint: 5 MO SPOTTING CRAMPING Other details as noted in HPI Comment: All other systems reviewed and negative ED Past Medical Hx - Past Medical History Previous Medical History?: No Hx Hypertension: No Hx Congestive Heart Failure: No Hx Diabetes: No Hx Deep Vein Thrombosis: No Hx Renal Disease: No Hx Sickle Cell Disease: No Hx Seizures: No Hx Asthma: No Hx COPD: No Hx HIV: No - Surgical History Past Surgical History?: Yes Additional Surgical History: C section Sep 11 2017 - Social History Smoking Status: Never Smoker - Medications Home Medications: Home Medications Medication Instructions Recorded Confirmed Last Taken Type Pnv No.95/Ferrous Fum/Folic AC 1 each PO QDAY #90 tablet 11/22/16 09/12/17 09/03/17 Rx [Prenavite Tablet] Ibuprofen [Motrin 600 MG tab] 600 mg PO Q8H PRN #30 tablet 09/10/17 Unknown Rx Multivitamin with Iron 1 each PO DAILY #30 tablet 09/10/17 Unknown Rx [Multivitamins with Iron] oxyCODONE /ACETAMINOPHEN [Percocet 1 tab PO Q6HR PRN #30 tablet 09/10/17 Unknown Rx 5/325] Nitrofurantoin Nance/M-Cryst 100 mg PO Q12HR #10 capsule 11/12/20 Unknown Rx [Macrobid CAP] ED Physical Exam - General Limitations: No Limitations General appearance: alert, in no apparent distress - Head Head exam: Present: atraumatic, normocephalic - Eye Eye exam: Present: normal appearance - ENT ENT exam: Present: mucous membranes moist - Neck Neck exam: Present: normal inspection - Respiratory Respiratory exam: Present: normal lung sounds bilaterally. Absent: respiratory distress - Cardiovascular Cardiovascular Exam: Present: regular rate, normal rhythm. Absent: systolic murmur, diastolic murmur, rubs, gallop - GI/Abdominal GI/Abdominal exam: Present: soft, normal bowel sounds, other (Gravid uterus, uterus palpated at umbilicus). Absent: tenderness, guarding - External exam: Present: normal external exam. Absent: erythema, swelling Speculum exam: Present: normal speculum exam. Absent: vaginal discharge, cervical discharge, vaginal bleeding - Extremities Exam Extremities exam: Present: normal inspection - Back Exam Back exam: Present: normal inspection - Neurological Exam Neurological exam: Present: alert, oriented X3 - Psychiatric Psychiatric exam: Present: normal affect, normal mood - Skin Skin exam: Present: warm, dry, intact, normal color. Absent: rash ED Course Vital Signs 11/11/20 19:25 Temperature 98.5 F Pulse Rate 87 Respiratory 18 Rate Blood Pressure 112/52 O2 Sat by Pulse 86 Oximetry ED Medical Decision Making - Lab Data Result diagrams: 11/11/20 20:55 - Radiology Data Radiology results: report reviewed, image reviewed ULTRASOUND OBSTETRIC INDICATION / CLINICAL INFORMATION: preg, bleeding, cramping. Clinical Gestational Age (GA) in weeks, days: 18 weeks, 1 day TECHNIQUE: Transabdominal. COMPARISON: None available. FINDINGS: Single intrauterine . Biparietal Diameter = 3.97 cm = 18 weeks, 0 days Head Circumference = 14.73 cm = 17 weeks, 6 days Abdominal Circumference = 12.17 cm = 17 weeks, 6 days Femur Length = 2.76 cm = 18 weeks, 3 days Average Ultrasound Age (AUA) = 18 weeks, 0 days Heart Rate: 142 beats per minute. Estimated Weight in grams (if calculated): 224 Estimated Weight Growth Percentile (if calculated): 42% Position: cephalic. Cervix: closed. Length in cm (if measured): 3.36 Placenta: posterior and free of the os. Amniotic Fluid Volume: normal Amniotic Fluid Index (ART) in cm (if calculated): 5.1. Maternal Adnexa: No significant abnormality. IMPRESSION: 1. Single, living intrauterine with estimated sonographic age of 18 weeks, 0 days. 2. No significant sonographic abnormality. Signer Name: Ge Babin MD Signed: 11/11/2020 9:39 PM Workstation Name: [id number] Transcribed By: DB Dictated By: GE BABIN MD Electronically Authenticated By: GE BABIN MD Signed Date/Time: 11/11/202138 - Medical Decision Making 25-year-old female presents to ED with vaginal bleeding ED course: Pt received ultra sound, CBC, urinalysis, test and quantit ative ED All labs within normal limits, quantitative elevated matching gestation age Patient states that bleeding is resolved when she is went into the bathroom to check Patient is followed by [facility] Patient states she has an appointment in about 1 week Ultrasound shows single IUP gestation at 18 weeks with heart rate of 142bpm. See reported above Vital signs normalized patient is in no acute distress. I discussed with the patient if follow-up with her [facility]. I discussed all labs and ultrasound findings with the patient. I discussed with the patient that he if bleeding worsens or new symptoms develop to return to ED immediately Critical care attestation.: If time is entered above; I have spent that time in minutes in the direct care of this critically ill patient, excluding procedure time. ED Disposition Clinical Impression: Vaginal bleeding during , Second trimester , UTI (urinary tract infection) Disposition: HOME / SELF CARE / HOMELESS Is pt being admited?: No Does the pt Need Aspirin: No Condition: Stable Instructions: and Sex, and Urinary Tract Infection, Second Trimester of Additional Instructions: Make sure to follow up with the primary care physician as discussed. Take all your medications as you've been prescribed. If you have any worsening symptoms or develop new symptoms please return to ED immediately. Prescriptions: Nitrofurantoin Nance/M-Cryst [Macrobid CAP] 100 mg PO Q12HR #10 capsule Referrals: [facility]IMARY [facility] [Primary Care Provider] - 3-5 Days [facility] [Provider Group] - 3-5 Days Forms: Work/School Release Form(ED) Time of Disposition: 00:13
[2020-11-11 23:46] LABS: Bacteria,Urine 1+ /HPF (Negative); Bilirubin,Urine NEG (Negative); Blood,Urine MOD (Negative); Color,Urine Yellow (Yellow); Mucus,Urine FEW /HPF; Protein,Urine <15 mg/dL mg/dL (Negative); Urobilinogen,Urine < 2.0 mg/dL (<2.0)
== END 2020-11-12 00:30 | disposition home or self-care (01) ==
LOC: ED 19:15
DX: O23.42 Unspecified infection of urinary tract in pregnancy, second trimester (principal); O20.8 Other hemorrhage in early pregnancy; Z3A.18 18 weeks gestation of pregnancy; Z98.890 Other specified postprocedural states; Z79.1 Long term (current) use of non-steroidal anti-inflammatories (NSAID); Z79.899 Other long term (current) drug therapy; Z91.018 Allergy to other foods
CPT/HCPCS: 36415; 76805; 81001; 84702; 85025; 86900; 86901